=== PATIENT | female | born 1980 | race Caucasian/White ===

== ENCOUNTER 2022-10-12 01:06 | Emergency (ER) | payer OTHER, SELFPAY ==
[2022-10-12 01:21] VITALS: BP 130/74; PULSE 82; RESP 16; TEMP 36.2; O2SAT 99
[2022-10-12 01:28] LABS: Appearance Urine Clear (Clear); Bilirubin Urine Negative (Negative); Blood Urine Negative (Negative); Color Urine Yellow (Yellow); Glucose Urine Negative (Negative); Ketones Urine Negative (Negative); Leukocyte Esterase Urine Negative (Negative); Nitrite Urine Negative (Negative); Protein Urine Negative (Negative); Specific Gravity Urine <= 1.005 (1.000-1.030); Urobilinogen Urine 0.2 (0.2-1.0)
--- NOTE | 2022-10-12 01:34 | ED.GENADULT ---
HPI - General Adult General Chief complaint: Urogenital Problems, Female Stated complaint: Bladder infection Time Seen by Provider: 10/12/22 01:22 History of Present Illness HPI narrative: burning with urination for past two weeks , rated 4/10 for pain 42-year-old woman presenting to the emergency department concern of urinary tract infection. She notes that she has had 100s. Was seen a couple of weeks ago for this and treated with a less familiar antibiotic. It made her sick and so she discontinued it. Is still having dysuria. No fever mentioned. No abdominal pain. Unfamiliar with old culture results. Denies any unusual vaginal discharge. Denies possibility of STI. Related Data Previous Rx's Medication Instructions Recorded cephalexin 500 mg capsule 500 mg PO TID 6 days #18 caps 10/15/22 Allergies Allergy/AdvReac Type Severity Reaction Status Date / Time morphine Allergy Intermediate Seizure Verified 10/12/22 01:25 Review of Systems Status of ROS: Reports: 6 or more systems reviewed and unremarkable except as noted in History and below PFSH PFSH Social History Smoking Status: Unknown if ever smoked Do you use any of these nicotine containing products: None How often do you have a drink containing alcohol: never How often do you have six or more drinks on one occasion: Never AUDIT-C Alcohol total score: 0 Non-prescribed substance use: denies use Exam Narrative: Exam Narrative: Pleasant. NAD. Skin warm and dry. Breathing easily. Abdomen is soft. Little uncomfortable to palpation in the suprapubic area. There is no flank pain. Const: Vital Signs, click to edit/add: Vital Signs - 24 hr 10/12/22 01:21 Temperature 97.1 F L Pulse Rate [Left P ulse Oximeter] 82 Respiratory Rate 16 Blood Pressure [Ri ght Upper Arm] 130/74 Pulse Oximetry 99 Oxygen Delivery Me thod Room Air Documenting provider has reviewed patient's vital signs: yes Course Vital Signs Vital signs: Initial Vital Signs Temperature 97.1 F L 10/12/22 01:21 Temperature Source Temporal Artery Scan 10/12/22 01:21 Pulse Rate 82 10/12/22 01:21 Pulse Rhythm Regular 10/12/22 01:21 Respiratory Rate 16 10/12/22 01:21 Blood Pressure 130/74 10/12/22 01:21 Blood Pressure Mean 92 10/12/22 01:21 Blood Pressure Position Sitting 10/12/22 01:21 Pulse Oximetry 99 10/12/22 01:21 Oxygen Delivery Method Room Air 10/12/22 01:21 Vital Signs Temperature 97.1 F L 10/12/22 01:21 Pulse Rate 82 10/12/22 01:21 Respiratory Rate 16 10/12/22 01:21 Blood Pressure 130/74 10/12/22 01:21 Pulse Oximetry 99 10/12/22 01:21 Oxygen Delivery Method Room Air 10/12/22 01:21 Temperature 97.1 F L 10/12/22 01:21 Pulse Rate 82 10/12/22 01:21 Respiratory Rate 16 10/12/22 01:21 Blood Pressure 130/74 10/12/22 01:21 Pulse Oximetry 99 10/12/22 01:21 Oxygen Delivery Method Room Air 10/12/22 01:21 Medical Decision Making MDM Narrative Medical decision making narrative: Obtain urinalysis. Would be good to get some culture results in this history. Urinalysis is quite unremarkable. Not sure this actually generates a culture. Seems like would warrant further evaluation perhaps even for aseptic cystitis. Lab Data Lab results reviewed: Yes I reviewed the patient's lab results Labs: Lab Results 10/12/22 Range/Units 01:16 Urine Color Yellow (Yellow) Urine Appearance Clear (Clear) Urine pH 6.0 (5.0-8.5) Ur Specific [place] <= 1.005 (1.000-1.030) Urine Protein Negative (Negative) Urine Glucose (UA) Negative (Negative) Urine Ketones Negative (Negative) Urine Blood Negative (Negative) Urine Nitrite Negative (Negative) Urine Bilirubin Negative (Negative) Urine Urobilinogen 0.2 (0.2-1.0) Ur Leukocyte Esterase Negative (Negative) Urine RBC 0-2 (0-2) Urine WBC 0-2 (0-5) Ur Squamous Epith Cells Moderate A (None-Few) Urine Bacteria Few A (None) Discharge Plan Discharge Clinical Impression: Dysuria Patient Disposition: Home, Self-Care Condition: Stable Additional Instructions: Continue to focus on on sugared hydration; particularly water. Might still want to use some phenazopyridine for burning with urination. If symptoms continuing another week, would recheck. Otherwise be seen for marked increase in abdominal pain, fever, unusual discharge. Yes, recurrent urinary tract infections might be a reason to have more extensive evaluation. Prescriptions: New cephalexin 500 mg capsule 500 mg PO TID 6 Days Qty: 18 0RF Stand Alone Forms: [employer] Info Instructions
[2022-10-12 01:35] LABS: Bacteria Urine Few; RBC Urine 0-2 (0-2); Squamous Epithelial Cell Urine Moderate (None-Few); WBC Urine 0-2 (0-5)
== END 2022-10-12 02:13 | disposition home or self-care (01) ==
LOC: ED 01:54
PROVIDERS: Emergency Provider Family Medicine
DX: R30.0 Dysuria (principal)
CPT/HCPCS: 81001; 87086; 87186; 99283

== ENCOUNTER 2023-04-05 22:03 | Emergency (ER) | payer OTHER, SELFPAY ==
[2023-04-05 23:11] VITALS: BP 145/83; PULSE 84; RESP 20; TEMP 36.8; O2SAT 99; BMI 25.2
--- NOTE | 2023-04-05 23:45 | ED.EAR ---
HPI - Ear Problem General Time Seen by Provider: 23:45 Date Seen: 04/05/23 Chief complaint: Ear/Nose/Throat Problem Stated complaint: ear infection Time Seen by Provider: 04/05/23 23:14 Source: patient and RN notes reviewed Mode of arrival: ambulatory Limitations: no limitations History of Present Illness HPI Narrative: Patient is a 43-year-old female with a history of extensive left ear surgery in 2012 with chronic discomfort and ear infections since that time who comes to the emergency room with complaints of left ear pain. 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 She tries to keep it covered and water out of her ear but notes that her pain has been increasing and she thinks there has been some drainage. She has not had fever or chills runny nose or sore throat. She notes that she does have some discomfort behind her ear as well. She tried to get in to ENT but her ENT has recently retired and she has not followed up with anyone else at this point. She has not taken anything for discomfort. Related Data Previous Rx's Medication Instructions Recorded ciprofloxacin 0.3 %-dexamethasone 4 drp Otic (ear-left) 3XD 7 days 04/05/23 0.1 % ear drops,suspension #7.5 mL Allergies Allergy/AdvReac Type Severity Reaction Status Date / Time morphine Allergy Intermediate Seizure Verified 04/05/23 23:14 Review of Systems Status of ROS: Reports: 6 or more systems reviewed and unremarkable except as noted in History and below [facility] Social History Smoking Status: Unknown if ever smoked Do you use any of these nicotine containing products: None How often do you have a drink containing alcohol: never How often do you have six or more drinks on one occasion: Never AUDIT-C Alcohol total score: 0 Non-prescribed substance use: denies use Exam Narrative: Exam Narrative: Alert and oriented. Nontoxic in appearance. Eyes are clear. Neck is supple. Right TM within normal limits. M left TM is partially obscured. There is some debris in the ear canal. The canal itself however is not erythematous. I do not see any liquid in the canal. She has some discomfort with manipulation of the external ear. There is tenderness noted over the mastoid but no obvious edema or cellulitis. No respiratory distress. Const: Vital Signs, click to edit/add: Vital Signs - 24 hr 04/05/23 23:11 Temperature 98.2 F Pulse Rate [Right Pulse Oximeter] 84 Respiratory Rate 20 Blood Pressure [Le ft Upper Arm] 145/83 H Pulse Oximetry 99 Oxygen Delivery Me thod Room Air Documenting provider has reviewed patient's vital signs: yes Course Vital Signs Vital signs: Initial Vital Signs Temperature 98.2 F 04/05/23 23:11 Temperature Source Temporal Artery Scan 04/05/23 23:11 Pulse Rate 84 04/05/23 23:11 Respiratory Rate 20 04/05/23 23:11 Blood Pressure 145/83 H 04/05/23 23:11 Blood Pressure Mean 103 04/05/23 23:11 Blood Pressure Position Sitting 04/05/23 23:11 Pulse Oximetry 99 04/05/23 23:11 Oxygen Delivery Method Room Air 04/05/23 23:11 Vital Signs Temperature 98.2 F 04/05/23 23:11 Pulse Rate 84 04/05/23 23:11 Respiratory Rate 20 04/05/23 23:11 Blood Pressure 145/83 H 04/05/23 23:11 Pulse Oximetry 99 04/05/23 23:11 Oxygen Delivery Method Room Air 04/05/23 23:11 Temperature 98.2 F 04/05/23 23:11 Pulse Rate 84 04/05/23 23:11 Respiratory Rate 20 04/05/23 23:11 Blood Pressure 145/83 H 04/05/23 23:11 Pulse Oximetry 99 04/05/23 23:11 Oxygen Delivery Method Room Air 04/05/23 23:11 Medical Decision Making MDM Narrative Medical decision making narrative: 1. Left otitis externa-this appears to be chronic and somewhat early but she does report that symptoms are worsening. I would elect to treat and she states that usually Ciprodex seems to work. Will use Ciprodex 4 drops t.i.d. x7 days. Asked that she see our ENT and have given her the phone number for that. 2. Disposition-home at this time. Return for worsening symptoms. Medical Records Medical records reviewed: Yes I reviewed the patient's medical records Discharge Plan Discharge Clinical Impression: Otalgia Patient Disposition: Home, Self-Care Condition: Unchanged Additional Instructions: Ciprodex drops as directed. Please call our clinic at [phone] and state that you were seen in the emergency room and have instructed to follow-up with ENT, Dr. Matute. Seek medical attention for fever, vomiting, worsening symptoms. Prescriptions: New ciprofloxacin-dexamethasone 0.3-0.1 % drops,suspension 4 drp Otic (ear-left) 3XD 7 Days Qty: 7.5 0RF Follow Up/Referrals: Provider,Not a Local [Primary Care Provider] - Stand Alone Forms: [employer] Info Instructions
[2023-04-06 01:00] VITALS: BP 125/78; PULSE 79; RESP 20; TEMP 36.6; O2SAT 99
[2023-04-06 01:01] VITALS: BP 125/78; PULSE 79; RESP 20; TEMP 36.6
== END 2023-04-06 01:01 | disposition home or self-care (01) ==
LOC: ED 04-06 00:01
PROVIDERS: Emergency Provider Family Medicine
DX: H60.92 Unspecified otitis externa, left ear (principal)
CPT/HCPCS: 99283